=== PATIENT | male | born 1965 | race Caucasian/White ===

== ENCOUNTER 2024-03-24 00:32 | Inpatient (IN) | payer OTHER, SELFPAY ==
[2024-03-23] VITALS (9 sets, daily range): BP systolic 67–102; BP diastolic 43–59; BMI 32.8
[2024-03-23] MEDS: NSS 1000 IV (22:10)
--- NOTE | 2024-03-23 22:33 | ED.GENMED ---
History of Present Illness
<Fei Thomas MD, Resident - Last Filed: 03/23/24 23:57>
General
Chief Complaint: Dizziness
Time Seen by Provider: 03/23/24 22:00
History of Present Illness
History of Present Illness:
58-year-old male with history of hypertension, hyperlipidemia, type 2 diabetes, CHF, presents to the ED with dizziness. The dizziness began at 7:30 PM when he was sitting and having dinner and worsened with standing compared to when he is sitting
down. He also reports feeling tired and experiencing flickering lights making it difficult to open his eyes. Additionally the patient has neck pain and intermittent left ear clogging with fluid sensation in his ear. He has been having mild
headaches on and off, with the pain rated at 5 out of 10. He denies any chest pain, shortness of breath, palpitations, weakness, room spinning.
Past History
<Fei Thomas MD, Resident - Last Filed: 03/23/24 23:57>
Past History
ED Past Medical History: HTN, Hypercholesterolemia, NIDDM and DC
Social History
Tobacco: Non-smoker
Alcohol: None
Drug: None
Personal: Partner
Living: with family
Review of Systems
<Fei Thomas MD, Resident - Last Filed: 03/23/24 23:57>
Review of Systems
Neurological: Reports dizzy
Phy Exam
<Fei Thomas MD, Resident - Last Filed: 03/23/24 23:57>
General Physical Exam
General Presentation: well appearing and other
ENT Exam
ENT Exam: EOMI and TM's normal
Eye Exam
Eye Exam: PERRL
Cardiovascular Exam
Cardiovascular Exam: regular rate/rhythm and no murmur
Pulmonary Exam
Pulmonary Exam: lungs clear
Gastrointestinal Exam
Gastrointestinal Exam: non tender, soft and non distended
Neurological Exam
Neurological Exam: alert and oriented x3
Musculoskeletal Exam
Musculoskeletal Exam: full ROM
Psychiatric Exam
Psychiatric Exam: normal mood/affect
Course
<Fei Thomas MD, Resident - Last Filed: 03/23/24 23:57>
Orders/Labs/Results
Orders:
Orders
03/23/24 22:01
EKG [Electrocardiogram (*1)] Urgent
Reason for Study: Fatigue / Weakness
EKG- Treatment ONCE
03/23/24 22:25
Electrocardiogram (*1) Stat
Reason for Study: Other
Other Reason for Exam: chest pain
Cardiac Monitoring- Treatment ONCE
EKG- Treatment ONCE
03/23/24 22:26
0.9% Sodium Chloride 1000 ml [Nss] 1,000 ml IV BOLUS
03/23/24 22:51
Complete Blood Count/With Diff Urgent
Comprehensive Metabolic Panel Urgent
Creatine Phosphokinase Urgent
Comment: ADD ON
Magnesium Urgent
TSH Urgent
Troponin I Urgent
03/23/24 23:34
CT Abd/pel Without Iv Or Oral Urgent
Comment:
Reason For Exam: arf
Magnesium Sulfate 2 Gram/50 ml [Magnesium Sulfate] 2 gram in 50 ml IV NOW
03/23/24 23:40
Urinalysis Reflex To Culture Urgent
03/23/24 23:42
Add On- LAB Urgent
Tests Added?: cpk, uds
03/23/24 23:44
Urine - Eosinophils [Body Fluid for Eosinophils] Routine
Fluid Source: Urine
03/23/24 23:55
B-Hydroxybutyrate Urgent
Abnormal Lab Results
03/23/24
22:51
RBC 4.39 L 10^6/uL
(4.70-6.10)
Hgb 12.9 L g/dL
(13.0-18.0)
Hct 36.4 L %
(39.0-52.0)
Plt Count 109 L 10^3/uL
(130-400)
MPV 10.8 H fL
(7.4-10.4)
Chloride 109 H mmol/L
(98-107)
Carbon Dioxide 17 L mmol/L
(22-30)
BUN 46 H mg/dl
(9-20)
Creatinine 3.3 H mg/dL
(0.7-1.3)
Glucose 127 H mg/dl
(70-99)
Magnesium 1.5 L mg/dl
(1.6-2.3)
Total Bilirubin 1.7 H mg/dl
(0.2-1.3)
03/23/24 22:51
03/23/24 22:51
Vital Signs
Initial and Last Documented VS:
Initial Vital Signs
Temp Pulse Resp BP Pulse Ox
97.4 F 97 18 67/45 98
03/23/24 21:52 03/23/24 21:52 03/23/24 21:52 03/23/24 21:52 03/23/24 21:52
Last Documented Vital Signs
Temp Pulse Resp BP Pulse Ox
97.4 F 73 13 102/59 96
03/23/24 21:52 03/23/24 23:19 03/23/24 23:19 03/23/24 23:19 03/23/24 23:19
Emilt;Gonzalez Hilton, DO - Last Filed: 03/23/24 23:37>
Orders/Labs/Results
Orders:
Orders
03/23/24 22:01
EKG [Electrocardiogram (*1)] Urgent
Reason for Study: Fatigue / Weakness
EKG- Treatment ONCE
03/23/24 22:25
Electrocardiogram (*1) Stat
Reason for Study: Other
Other Reason for Exam: chest pain
Cardiac Monitoring- Treatment ONCE
EKG- Treatment ONCE
03/23/24 22:26
0.9% Sodium Chloride 1000 ml [Nss] 1,000 ml IV BOLUS
03/23/24 22:51
Complete Blood Count/With Diff Urgent
Comprehensive Metabolic Panel Urgent
Creatine Phosphokinase Urgent
Comment: ADD ON
Magnesium Urgent
TSH Urgent
Troponin I Urgent
03/23/24 23:34
CT Abd/pel Without Iv Or Oral Urgent
Comment:
Reason For Exam: arf
Magnesium Sulfate 2 Gram/50 ml [Magnesium Sulfate] 2 gram in 50 ml IV NOW
03/23/24 23:40
Urinalysis Reflex To Culture Urgent
03/23/24 23:42
Add On- LAB Urgent
Tests Added?: cpk, uds
03/23/24 23:44
Urine - Eosinophils [Body Fluid for Eosinophils] Routine
Fluid Source: Urine
03/23/24 23:55
B-Hydroxybutyrate Urgent
Abnormal Lab Results
03/23/24
22:51
RBC 4.39 L 10^6/uL
(4.70-6.10)
Hgb 12.9 L g/dL
(13.0-18.0)
Hct 36.4 L %
(39.0-52.0)
Plt Count 109 L 10^3/uL
(130-400)
MPV 10.8 H fL
(7.4-10.4)
Chloride 109 H mmol/L
(98-107)
Carbon Dioxide 17 L mmol/L
(22-30)
BUN 46 H mg/dl
(9-20)
Creatinine 3.3 H mg/dL
(0.7-1.3)
Glucose 127 H mg/dl
(70-99)
Magnesium 1.5 L mg/dl
(1.6-2.3)
Total Bilirubin 1.7 H mg/dl
(0.2-1.3)
03/23/24 22:51
03/23/24 22:51
Vital Signs
Initial and Last Documented VS:
Initial Vital Signs
Temp Pulse Resp BP Pulse Ox
97.4 F 97 18 67/45 98
03/23/24 21:52 03/23/24 21:52 03/23/24 21:52 03/23/24 21:52 03/23/24 21:52
Last Documented Vital Signs
Temp Pulse Resp BP Pulse Ox
97.4 F 73 13 102/59 96
03/23/24 21:52 03/23/24 23:19 03/23/24 23:19 03/23/24 23:19 03/23/24 23:19
<Gonzalez Hilton DO - Last Filed: 03/23/24 23:37>
*Cellular Biologist Interpretation
Rate: normal
Interpretation: normal
Rhythm: sinus
*Critical Care Note
Total Time (30-74mins, 75-104mins- exclusive of procedures): 30
Data Reviewed
Source: patient and significant other
<Fei Thomas MD, Resident - Last Filed: 03/23/24 23:57>
Update Note
Update Note:
58-year-old male presents with dizziness. Laboratory evaluation CBC CMP, troponin I. EKG shows normal sinus rhythm.
Differential diagnosis -#1 CVA, #2 DC #3 PE #4 aortic dissection with rupture less likely. no chest pain #5 orthostasis hypertension
-Patient's pulse ox is normal which rules out PE, denies CP.
-Checking troponin to r/o DC.
-Neurological examination was normal, motor strength 5/5 with normal sensation.
Laboratory evaluation reveals acute kidney injury of uncertain etiology. Troponin levels are within normal limits. A CT scan of the abdomen and pelvis is planned to rule out bowel obstruction. The patient is currently on 20 mg of lisinopril.
Questionable if this acute episode of dizziness could be an adverse effect of the medication. BP improved with fluids from 67/45 to 102/59 and he states of feeling better after fluids. Plan is to admit the patient for acute kidney injury.
ED Attending Note
<Fei Thomas MD, Resident - Last Filed: 03/23/24 23:57>
-
Portions of this chart may have been created with voice recognition software.� Occasional wrong word or��sound alike� substitutions may have occurred due to the inherent limitations of voice recognition software.
<Gonzalez Hilton DO - Last Filed: 03/23/24 23:37>
ED Attending Note
Patient seen and examined by attending physician: Yes
I performed a history and physical exam of patient and discussed management with resident, I reviewed resident's note and agree with documented findings and plan of care.: Yes
ED Attending Note:
Seen with resident examined independently 58-year-old male CAD, nondrinker non-smoker, hypertension, presents with dizziness low blood pressure neck pain no chest pain no shortness of breath no fever chills abdominal pain fairly acute onset only
complaining of some pain around C7-T1 no trauma states he is feeling better after some fluids
Physical exam he has normal mental status blood pressure now in the 90s after fluid bolus, EKG noted looks like an old inferior pattern, labs are cooking diagnosis not clear at this time will follow closely
11:30 PM labs noted no old in our system will replete replete magnesium, check CT scan to rule out obstruction will require admission
Discharge Plan
Departure
Patient Disposition: Admit
Date of Disposition: 03/23/24
Time of Disposition: 23:50
Presentation/result/management discussed w/ accepting MD/DO: Hospitalist
Patient with high blood pressure during this ER visit?: No
Discharge Problem:
Acute kidney injury
Referrals:
Ruppersberger,German, DO [Family Provider] -
Interventions
Interventions:
*General Assessment Last Done: 03/23/24 22:05
ED- Fall Risk Assessment Last Done: 03/23/24 22:05
*ED COVID-19 Vaccine History Last Done: 03/23/24 22:05
ED- Neurological Assessment Last Done: 03/23/24 22:05
ED- Cardiac Assessment Last Done: 03/23/24 22:05
Discharge Date and Time
Print Language: BENGALI
[2024-03-23 23:12] LABS: % Basophils 0.6 % (0-2); % Immature Granulocytes 0.4 % (0-0.5); % Lymphocytes 35.1 % (20.5-51.1); % Monocytes 6.8 % (1.7-9.3); % Neutrophils 56.1 % (42.2-75.2); Absolute Basophils 0.1 10^3/uL (0-0.2); Absolute Eosinophils 0.1 10^3/uL (0-0.7); Absolute Lymphocytes 2.8 10^3/uL (1.2-3.4); Absolute Monocytes 0.5 10^3/uL (0.1-0.6); Absolute Neutrophils 4.5 10^3/uL (1.4-6.5); Hematocrit 36.4 % (39.0-52.0); Hemoglobin 12.9 g/dL (13.0-18.0); Mean Corp Hgb Conc. 35.4 g/dL (33.0-37.0); Mean Corpuscular Hgb 29.4 pg (27.0-31.0); Mean Corpuscular Volume 82.9 fL (80.0-94.0); Nucleated Red Blood Cells % 0 % (-); Red Blood Cell Count 4.39 10^6/uL (4.70-6.10); Red Cell Dist. Width 13.2 % (11.5-14.5)
[2024-03-23 23:13] LABS: Mean Platelet Volume 10.8 fL (7.4-10.4); Platelet Count 109 10^3/uL (130-400)
[2024-03-23 23:31] LABS: Troponin I < 0.012 ng/ml
[2024-03-23 23:32] LABS: ALT (SGPT) 30 U/L (0-50); AST (SGOT) 34 U/L (17-59); Albumin 4.7 g/dl (3.5-5.0); Alkaline Phosphatase 78 U/L (38-126); Blood Urea Nitrogen 46 mg/dl (9-20); Calcium 9.6 mg/dl (8.4-10.2); Carbon Dioxide 17 mmol/L (22-30); Chloride 109 mmol/L (98-107); Estimated Creatinine Clearance 31 ml/min; Glucose 127 mg/dl (70-99); Magnesium 1.5 mg/dl (1.6-2.3); Potassium 4.7 mmol/L (3.5-5.1); Sodium 141 mmol/L (135-145); Total Bilirubin 1.7 mg/dl (0.2-1.3); Total Protein 7.5 g/dl (6.3-8.2); eGFR 20.56
--- NOTE | 2024-03-23 23:43 | HPS.HSE ---
Family Physician
-
Family Physician:
Chief Complaint
-
Diarrhea, dizziness, hypotension
History of Present Illness
58-year-old male complaining of dizziness starting at 7:30 PM while he was having dinner. He reports symptoms are worse with standing compared to sitting down. He reports intermittent left ear pain with fluid sensation mild headaches on and off
and neck pain. His states that his blood pressure at home was 60 over 30s when he was dizzy. He reports he has been having watery brown diarrhea 4 times a day for the past 3 days. He denies any blood or mucus no recent travel no antibiotics
no sick contacts no raw foods or abdominal pain. He denies fever, chills, chest pain, palpitations, room spinning, shortness of breath, cough, abdominal pain, nausea, vomiting, diarrhea. He has has medical history of hypertension, hyperlipidemia,
DM 2/diabetic neuropathy, CAD/[place] times 10/2007 former smoker 15 years 1/2 to 1 pack a day quit 2007.
Medical History
Past Medical History
Past Medical History: Reports Other
Additional Past Medical History:
hypertension
hyperlipidemia
DM 2/diabetic neuropathy
CAD/[place] times 10/2007
former smoker 15 years 1/2 to 1 pack a day quit 2007.
Past Surgical History: Reports Other
Additional Past Surgical History:
Left knee meniscus repair 2018, left knee cortisone injections
Social History
Tobacco: Former Smoker (15-year 1/2 pack to 1 pack/day quit 2007)
Alcohol: None
Drug: None
Personal:
Living: With Family ()
Employment: Employed
Family History
Family History: Other (Father pancreatic cancer age 39, mother living history hypothyroidism, 2 sisters 1 brother healthy)
Allergies / Home Medications
Allergies reflects when Allergies were last updated in [facility].
Home Medications with original date entered in [facility]
Allergy/Medication List:
Allergies
Allergy/AdvReac Type Severity Reaction Status Date / Time
No Known Allergies Allergy Unverified 03/23/24 21:52
Home Medications
Crestor 5 mg PO 03/24/24
Jardiance 10 mg PO DAILY 03/24/24
Norvasc 5 mg PO DAILY 03/24/24
alpha lipoic acid 600 mg PO BID 03/24/24
gabapentin 300 mg PO BID 03/24/24
lisinopril 20 mg tablet 20 mg PO DAILY 03/24/24
metformin 1,000 mg PO BID 03/24/24
Review of Systems
-
History Source: Patient and Family ()
A 12 point ROS was completed and negative except as noted: Yes
Constitutional: Reports Fatigue; Denies Fever, Night Sweats or Chills
EENT: Reports Other (Intermittent left ear pain); Denies Sore Throat or Runny Nose
Respiratory: Denies Cough or Trouble Breathing
Cardiac: Denies Chest Pain, Diaphoresis, Palpitations or Syncope
Abdomen/GI: Reports Diarrhea (Watery brown); Denies Abdominal Pain, Nausea, Vomiting, Constipated, Bloody Stools or Black Stools
: Denies Dysuria, Frequency, Flank Pain, Incontinence, Difficulty Voiding, Urgency or Dark Urine
Musculoskeletal: Denies Joint Pain or Edema
Skin: Denies Itching or Rash
Neurological: Reports Dizzy and Headache; Denies Weakness or Numbness
Endocrine: Reports No Symptoms
Hematologic/Lymphatic: Reports No Symptoms
Psych: Reports Calm
Physical Exam
Vital Signs
Vital Signs
Temp Pulse Resp BP Pulse Ox
97.4 F 73 13 102/59 96
03/23/24 21:52 03/23/24 23:19 03/23/24 23:19 03/23/24 23:19 03/23/24 23:19
Physical Exam
General: Comfortable and Conversant; No Pain, Fever or Chills
HEENT: NormoCephalic, Anicteric, PERRLA, [place] Conjunctivae, No Ptosis, Neck Nontender and Other (Left TM intact no effusion); No Pharyngeal Erythema
Respiratory: Clear; No Wheezes, Rales or Rhonchi
Cardiac: S1/S2 and Regular Rhythm; No Murmur, Rub, Gallop or Peripheral Edema
Breast: Deferred by me
GI: Soft, Non Tender, Non Distended, Normal Bowel Sounds and No Hepatosplenomegaly
Rectal: Deferred by Provider
Genito-urinary: Deferred by me
Musculoskeletal: No Clubbing, No Cyanosis and No Edema
Skin: Warm and Dry; No Rash or Jaundice
Neuro: AO x 3, No Motor Deficits, Nonfocal/grossly intact, Cranial Nerves Intact and No Sensory Deficits; No Slurred Speech, Facial Droop or Tremors
Psych: Calm
Laboratory Results
-
03/23/24 22:51
03/23/24 22:51
Laboratory Results
Total Bilirubin 1.7 mg/dl (0.2-1.3) H 03/23/24 22:51
AST 34 U/L (17-59) 03/23/24 22:51
ALT 30 U/L (0-50) 03/23/24 22:51
Alkaline Phosphatase 78 U/L (38-126) 03/23/24 22:51
Troponin I < 0.012 ng/ml 03/23/24 22:51
Impression/Plan
-
Impression/plan:
Admit to telemetry
#Acute diarrhea likely viral
No fever no chills no antibiotics no recent travel no sick contacts
Watery brown 4 times a day times past 3 days
Check C. difficile, stool WBC, stool culture, norovirus
#Acute hypotension secondary to volume depletion/CHIOMA/diarrhea
67/45> 102/59 status post 1 L NSS
IV NSS 100 cc/h
I/O, daily weights
-Hold lisinopril, Norvasc 5 mg daily
#CHIOMA likely secondary to diarrheal losses
Creat 3.3/bun 46
-Check Cpk, urine eosinophil
-CT abdomen pelvis noncontrast
-Hold lisinopril 20 mg daily, metformin 1000 mg twice daily, Jardiance 10 mg
-Consult nephrology
-IV NSS 100 cc an hour is status post 1 L NSS
#Thrombocytopenia unclear
PLT 109
Follow CBC
#Hypomagnesemia
Mag 1.5 will give mag rider 2 g
-Repeat mag in a.m.
EKG NSR 90 bpm, QTc 451 MS T wave inversions inferior leads
#Chronic left knee pain status post cortisone injection several days ago
#History of left meniscus repair 2017
#CAD/[place] times 10/2007
-Patient reports had cardiac cath was unable to have any stenting completed at [facility]
-Does not follow with cardiology
#DM2 with diabetic neuropathy
-Continue gabapentin 300 mg twice daily will decrease to 300 mg daily
-Hold OTC alpha lipoic acid
#HLD
Crestor 5 mg in a.m.
#Former smoker
15-year 1/2 pack to 1 pack/day quit 2007
#Obesity due to excess calorie consumption�BMI 32.8 kg
Affects all aspects of care
Weight loss recommended
DVT prophylaxis
SCDs
full code
[2024-03-23 23:57] LABS: Creatine Phosphokinase 210 U/L (55-170)
[2024-03-23] MEDS: MAGNESIUM SULFATE 50 IV (23:58)
[2024-03-24] VITALS (15 sets, daily range): BP systolic 93–150; BP diastolic 52–82; PULSE 74–86; O2SAT 97; BMI 32.8
[2024-03-24 00:02] LABS: TSH 2.05 uIU/ml (0.47-4.68)
--- NOTE | 2024-03-24 00:09 | W.PN.UPDATE ---
Update Note
Progress Note Update
This note serves as an addendum to the H&P by inspectors and regulatory officers ARIANE Kimberly CASTAÑEDA
HPI
58M HX HTN, T2DM, CHF, HLD , no prior visist to DH seen at ER for evaluation of low BP and dizziness.
Acute dizzy spells
- onset around 730pm
- more like lightheadedness with upright posture and walking
- BP at home 60/30 per spouse
- associated with flashing lights when opening eyes
- associated neck pain and intermittent left ear clogging that feels like there is water in his ear.
- mild headaches on and off, with the pain rated at 5 out of 10.
- acute watery brown non bloody diarrhea without abdominal pain for last 4- 5days
- No recent ABx
- No recent travailing
- denied HX sick contact
ROS:
Denies chest pain, shortness of breath, palpitations, weakness
At ER:
Noted hypotension
Significant labs include Cr 3.3, CO2 17, Mg 1.5 and Platelet 109
PHX:
see above
Reviewed VS: Afebrile BP 92/50 - 102/60 HR73 RR13 POx 96
PE
Gen: Not toxic looking , Obese BMI 32
HEENT: anicteric , moist OM, no tonsillitis
Neck: supple
Lungs: CTA
Cor: RRR S1 S2 no murmur
Abdomen: soft , obese protuberant abdomen, NT, Ng, NRT
FORK ASSEMBLER: AAO3, NFND
MS: no edema
Psych: appropriate
Data: No prior Jude in [facility]
Hgb 12.9
Plt 109
Na 141
Cl 109
CO2 17
BUN 46
Cr 3.3
e GFR 20
BG 127
AGMA 15
Mg 1.5
TB 1.7
Nl ALT and AST
NEG TPNI
Pending B Hydroxybutyrate
Pending CPK
Pending Ur eosinophiles
Pending TSH
Pending UA
Pending Covid
Pending CT AP wo contrast ( IV and PO )
No prior DH and and hospitalist admission:
ASSESSMENT & PLAN
Pending Rx reconciliation
Renal insufficiency - suspect CHIOMA , any element of CKD
Associated AG metabolic acidosis(15)
DDX: acute diarrhea , r/o ketoacidosis such as diabetic ketoacidosis, euglycemia ketoacidosis ??
Hypovolemia
Current Cr Cl 31
- Pending Rx reconciliation and check Dapagliflozin as OP Meds - if it is will hold
- Pending B Hydroxybutyrate
- Pending CPK
- Pending Ur eosinophiles
- Pending UDS
- Pending CT AP wo contrast ( IV and PO )
- IVF NS and trend Cr and AGMA
- Held Lisinopril and Norvasc
- De escalade Gabapentin according to Cr Cl
- Renal consult
Acute watery non bloody diarrhea for last 3 days
Suspect acute enteritis vs colitis Diff etiology: Vitral
- IV NS
- Stool WCC, Cx and C Diff
- check Noro virus
T2DM
Diabetic neuropathy on Gabapenttin 300 mg BID
- add ISS low
- held Metformin
Hypotensive due to volume contraction from acute diarrhea
Essential HTN
- Held Lisinopril and Norvasc
Mild Thrombocytopenia - unclear etiology
- Trend Platelet
HLD
DVT Px: SCD
Code: Full code
IP TLM
[2024-03-24] MEDS: NSS 1000 IV ×4 (00:15→21:34)
[2024-03-24 04:26] LABS: COVID-19 Antigen Negative (Negative)
[2024-03-24 07:59] LABS: % Basophils 0.4 % (0-2); % Eosinophils 1.1 % (0-6); % Immature Granulocytes 0.2 % (0-0.5); % Lymphocytes 46.6 % (20.5-51.1); % Monocytes 7.6 % (1.7-9.3); % Neutrophils 44.1 % (42.2-75.2); Absolute Eosinophils 0.1 10^3/uL (0-0.7); Absolute Lymphocytes 2.1 10^3/uL (1.2-3.4); Absolute Monocytes 0.3 10^3/uL (0.1-0.6); Hematocrit 33.3 % (39.0-52.0); Hemoglobin 11.5 g/dL (13.0-18.0); Mean Corp Hgb Conc. 34.5 g/dL (33.0-37.0); Mean Corpuscular Volume 84.1 fL (80.0-94.0); Nucleated Red Blood Cells % 0 % (-); Red Blood Cell Count 3.96 10^6/uL (4.70-6.10); Red Cell Dist. Width 13.2 % (11.5-14.5); White Blood Cell Count 4.5 10^3/uL (4.8-10.8)
[2024-03-24] MEDS: NEURONTIN 300 MG PO (08:00)
[2024-03-24 08:05] LABS: Glucose - Point of Care 89 mg/dl (70-99)
[2024-03-24 08:13] LABS: ALT (SGPT) 29 U/L (0-50); AST (SGOT) 31 U/L (17-59); Albumin 3.9 g/dl (3.5-5.0); Alkaline Phosphatase 83 U/L (38-126); Blood Urea Nitrogen 39 mg/dl (9-20); Calcium 8.7 mg/dl (8.4-10.2); Carbon Dioxide 17 mmol/L (22-30); Chloride 111 mmol/L (98-107); Estimated Creatinine Clearance 61 ml/min; Glucose 82 mg/dl (70-99); HDL Cholesterol 16 mg/dl; LDL Cholesterol, Calculated 20 mg/dl; Magnesium 1.8 mg/dl (1.6-2.3); Potassium 4.4 mmol/L (3.5-5.1); Sodium 139 mmol/L (135-145); Total Bilirubin 1.6 mg/dl (0.2-1.3); Total Cholesterol 72 mg/dl (50-199); Total Protein 6.5 g/dl (6.3-8.2); Triglyceride 180 mg/dl (10-149); Very Low Density Lipoprotein 36 mg/dl (0-30); eGFR 45.58
[2024-03-24 09:16] LABS: Mean Platelet Volume 11.4 fL (7.4-10.4); Platelet Count 72 10^3/uL (130-400)
[2024-03-24 09:37] LABS: Urine Albumin Trace (Neg - Trace); Urine Bilirubin Negative (Negative); Urine Character Clear (Clear); Urine Color Yellow; Urine Glucose 3+ (Negative); Urine Ketone Trace (Negative); Urine Leukocyte Negative (Negative); Urine Nitrite Negative (Negative); Urine Occult Blood Negative (Negative); Urine Urobilinogen Negative (Neg - 1+)
[2024-03-24 10:53] LABS: Glycohemoglobin (HgbA1c) 5.3 % (4.0-5.6)
[2024-03-24 11:18] LABS: Glucose - Point of Care 110 mg/dl (70-99)
--- NOTE | 2024-03-24 12:02 | W.PN.HOSP.TC ---
Today's Communication/Plan
-
Monitor vital signs and see plan
Continue to follow stool studies
Continue with fluids
Trial of regular diet
Monitor renal function
Assessment / Plan
Assessment / Plan
General: Comfortable and Conversant
HEENT: NormoCephalic, Anicteric, PERRLA, [place] Conjunctivae
Respiratory: Clear; No Wheezes, Rales or Rhonchi
Cardiac: S1/S2 and Regular Rhythm; No Murmur
Breast: Deferred by me
GI: Soft, Non Tender, Non Distended, Normal Bowel Sounds
Musculoskeletal: No Edema
Neuro: AO x 3, No Motor Deficits, Nonfocal/grossly intact
Psych: Calm
Renal insufficiency - suspect CHIOMA , unsure if has any CKD
Associated AG metabolic acidosis
monitor Creatinine
Hypovolemia
- Pending Ur eosinophiles
- Pending UDS
CT abdomen/pelvis with colonic diverticulosis, mild hepatosplenomegaly. No acute abnormality
- IVF NS and trend Cr and AGMA
- Held Lisinopril and Norvasc
- De escalade Gabapentin according to Cr Cl
Hold off on renal evaluation, if creatinine does not improve then will get nephrology to evaluate
Acute watery non bloody diarrhea for last 3 days
- IV NS
- Stool WCC, Cx
cdiff neg
T2DM
Diabetic neuropathy on Gabapentin 300 mg BID
- add ISS low
- held Metformin
Hypotensive due to volume contraction from acute diarrhea
Essential HTN
- Held Lisinopril and Norvasc
Chronic left knee pain status post cortisone injection several days ago
#History of left meniscus repair 2017
#CAD/[place] times 10/2007
-Patient reports had cardiac cath was unable to have any stenting completed at [facility]
-Does not follow with cardiology
Mild Thrombocytopenia - unclear etiology
- Trend Platelet
HLD
DVT Px: SCD
Code: Full code
Anticipated Discharge: 24 - 48 hours
Subjective/Interval History
-
Date of Service: March 24, 2024
denies pain
Objective Data
-
Labs:
Laboratory Results
03/24/24
06:34
WBC 4.5 L
Hgb 11.5 L
Hct 33.3 L
Plt Count 72 L D
Sodium 139
Potassium 4.4
Chloride 111 H
Carbon Dioxide 17 L
BUN 39 H
Creatinine 1.7 H
Glucose 82
Calcium 8.7
Total Bilirubin 1.6 H
AST 31
ALT 29
Alkaline Phosphatase 83
Vital Signs:
Vital Signs
Temp Pulse Resp BP Pulse Ox
97.5 F 66 16 112/64 96
03/24/24 07:00 03/24/24 07:00 03/24/24 07:00 03/24/24 07:00 03/24/24 07:00
I&O
03/23/24 03/24/24 03/25/24
06:59 06:59 06:59
Intake Total 400 / 400
Balance 400 / 400
[2024-03-24 12:57] LABS: Amphetamines Negative (Negative); Barbiturates Negative (Negative); Benzodiazepines Negative (Negative); Buprenorphine Negative (Negative); Cocaine Negative (Negative); Marijuana Negative (Negative); Methadone Negative (Negative); Methamphetamines Negative (Negative); Opiates Negative (Negative); Phencyclidine Negative (Negative); Tricyclic Antidepressants Negative (Negative)
[2024-03-24 13:48] LABS: Body Fluid for Eosinophils No Eosinophils seen
--- NOTE | 2024-03-24 15:25 | CM ---
Met with pt and SO at bedside
Pt lives alone in a 2 story home, currently going through divorce - plans to go to SO's home at d/c
Independent, driving
DME - cane
SNF/HH - denies hx
Has ride at d/c
PCP -Dr Purcell
Pharm - [facility]
CM will follow for d/c needs
Plan - anticipate home no needs
[2024-03-24 16:59] LABS: Glucose - Point of Care 103 mg/dl (70-99)
[2024-03-24 21:43] LABS: Glucose - Point of Care 114 mg/dl (70-99)
[2024-03-25] MEDS: NSS 1000 IV (06:40)
[2024-03-25 07:00] VITALS: BP 148/73
[2024-03-25 07:28] LABS: % Basophils 0.5 % (0-2); % Eosinophils 1.5 % (0-6); % Immature Granulocytes 0.3 % (0-0.5); % Lymphocytes 39.5 % (20.5-51.1); % Monocytes 6.8 % (1.7-9.3); % Neutrophils 51.4 % (42.2-75.2); Absolute Eosinophils 0.1 10^3/uL (0-0.7); Absolute Lymphocytes 1.6 10^3/uL (1.2-3.4); Absolute Monocytes 0.3 10^3/uL (0.1-0.6); Hematocrit 33.6 % (39.0-52.0); Mean Corp Hgb Conc. 35.7 g/dL (33.0-37.0); Mean Corpuscular Hgb 30.4 pg (27.0-31.0); Mean Corpuscular Volume 85.1 fL (80.0-94.0); Mean Platelet Volume 11.1 fL (7.4-10.4); Nucleated Red Blood Cells % 0 % (-); Platelet Count 64 10^3/uL (130-400); Red Blood Cell Count 3.95 10^6/uL (4.70-6.10); Red Cell Dist. Width 12.9 % (11.5-14.5)
[2024-03-25 07:35] LABS: ALT (SGPT) 28 U/L (0-50); AST (SGOT) 30 U/L (17-59); Albumin 3.7 g/dl (3.5-5.0); Alkaline Phosphatase 71 U/L (38-126); Blood Urea Nitrogen 21 mg/dl (9-20); Calcium 8.8 mg/dl (8.4-10.2); Carbon Dioxide 21 mmol/L (22-30); Chloride 110 mmol/L (98-107); Estimated Creatinine Clearance 115 ml/min; Glucose 80 mg/dl (70-99); Potassium 4.8 mmol/L (3.5-5.1); Sodium 138 mmol/L (135-145); Total Bilirubin 1.3 mg/dl (0.2-1.3); Total Protein 6.4 g/dl (6.3-8.2); eGFR > 60.00
[2024-03-25 07:38] LABS: Glucose - Point of Care 94 mg/dl (70-99)
[2024-03-25] MEDS: NEURONTIN 300 MG PO (08:18)
[2024-03-25] MEDS: NORVASC 10 MG PO (10:24)
--- NOTE | 2024-03-25 10:51 | W.PN.HOSP.TC ---
Today's Communication/Plan
-
Monitor vital signs and see plan
Discharge today
DC metformin and Jardiance on discharge
Time of discharge 38 minutes
Assessment / Plan
Assessment / Plan
General: Comfortable and Conversant
HEENT: NormoCephalic, Anicteric, PERRLA, [place] Conjunctivae
Respiratory: Clear; No Wheezes, Rales or Rhonchi
Cardiac: S1/S2 and Regular Rhythm; No Murmur
Breast: Deferred by me
GI: Soft, Non Tender, Non Distended, Normal Bowel Sounds
Musculoskeletal: No Edema
Neuro: AO x 3, No Motor Deficits, Nonfocal/grossly intact
Psych: Calm
SKI likely 2/2 diarrhea,Diabetes meds
Associated AG metabolic acidosis
monitor Creatinine; reolved; Cr 0.9
Hypovolemia
- Ur eosinophiles neg
- UDS neg
CT abdomen/pelvis with colonic diverticulosis, mild hepatosplenomegaly. No acute abnormality
- IVF NS and trend Cr and AGMA
- Held Lisinopril and Norvasc; restart Norvasc. Instructed patient to restart lisinopril when blood pressure persistently elevated at home
Resume home gabapentin dose on discharge
Hold off on renal evaluation, if creatinine does not improve then will get nephrology to evaluate
Acute watery non bloody diarrhea for last 3 days
resolved
Stool WBC negative, norovirus nge
cdiff neg
T2DM
A1c 5.3, discussed with patient and his significant other that he can stop metformin and Jardiance on discharge and follow-up with primary care provider
Diabetic neuropathy on Gabapentin 300 mg BID
- add ISS low
- held Metformin
Hypotensive due to volume contraction from acute diarrhea
Essential HTN
Chronic left knee pain status post cortisone injection several days ago
#History of left meniscus repair 2017
#CAD/[place] times 10/2007
-Patient reports had cardiac cath was unable to have any stenting completed at [facility]
-Does not follow with cardiology
Mild Thrombocytopenia - unclear etiology
- Trend Platelet
HLD
DVT Px: SCD
Code: Full code
Anticipated Discharge: Today
Subjective/Interval History
-
Date of Service: March 25, 2024
denies pain
Objective Data
-
Labs:
Laboratory Results
03/25/24
05:54
WBC 4.0 L
Hgb 12.0 L
Hct 33.6 L
Plt Count 64 L
Sodium 138
Potassium 4.8
Chloride 110 H
Carbon Dioxide 21 L
BUN 21 H
Creatinine 0.9
Glucose 80
Calcium 8.8
Total Bilirubin 1.3
AST 30
ALT 28
Alkaline Phosphatase 71
Vital Signs:
Vital Signs
Temp Pulse Resp BP Pulse Ox
98.1 F 76 16 135/73 95
03/25/24 07:00 03/25/24 10:24 03/25/24 07:00 03/25/24 10:24 03/25/24 07:00
I&O
03/24/24 03/25/24 03/26/24
06:59 06:59 06:59
Intake Total 400 / 400 1680 / 1680 1680 / 1680
Balance 400 / 400 1680 / 1680 1680 / 1680
[2024-03-25 11:07] VITALS: BP 142/74
[2024-03-25 11:30] VITALS: BP 113/65; BP 124/71; BP 127/73; PULSE 76; PULSE 79; PULSE 88
--- NOTE | 2024-03-25 11:34 | CM ---
Case management following for d/c needs
Pt for d/c today
Has ride home
Plan - anticipate home no needs
[2024-03-25 12:03] LABS: Glucose - Point of Care 111 mg/dl (70-99)
--- NOTE | 2024-03-25 13:37 | W.DCSUMMARY ---
Discharge Summary
Discharge Data
Date of Admission: 03/24/24
Date of Discharge: 03/25/24
-
Pending Results: No
Hospital Course
58-year-old male with past medical history of CAD, NC, type 2 diabetes mellitus came to the hospital with acute kidney injury which was likely thought was secondary to ongoing diarrhea and use of diabetes medications. Patient did had metabolic
acidosis on admission which continue to improve. His creatinine was significantly elevated on admission which over time continue to improve after fluids. CT scan was done which did not show any acute abdominal abnormality. Initially patient was
hypotensive so his blood pressure medications were held. Once his blood pressure continued to rise then he was started back on Norvasc. His lisinopril was held on discharge and he was instructed to restart if his blood pressure is persistently
high at home. His diarrhea resolved on its own and was likely thought was secondary to viral. Stool studies were negative for norovirus, C. difficile. His A1c also came out to be 5.3 so he was instructed to stop his metformin and Jardiance and
follow-up with primary care provider outpatient. Once his symptoms continue to improve and his creatinine normalized, he was then discharged home with instructions to follow-up with all his physicians outpatient.
Discharge Plan
-
Patient Disposition: Home (Routine Discharge)
Discharge Diagnosis/Procedures: Acute kidney injury
Metabolic acidosis
Acute diarrhea
Dehydration
Thrombocytopenia
Diet: As tolerated
Activity: As tolerated
Driving Restrictions: As prior to admission
Bathing Restrictions: None
Blood Work: CBC and BMP next week with primary care provider
Referrals:
German Slaughter, [Family Provider] - in less than 1 week
Prescriptions:
Continued
Norvasc
10 mg PO DAILY
alpha lipoic acid
600 mg PO BID
gabapentin
300 mg PO BID
rosuvastatin 20 mg Tablet
20 mg PO DAILY
Held
lisinopril 20 mg Tablet
20 mg PO DAILY
Hold Instructions: Restart when blood pressure is greater than 140/90
Discontinued
Jardiance
25 mg PO DAILY
Patient Comments:
started in january
metformin
1,000 mg PO BID
Discharge Orders:
Discharge Patient (As Directed); Ordered 03/25/24
Ordered By: Sonny Goldberg
Discharge Date and Time
Print Language: ERITREAN
[2024-03-25 15:00] VITALS: BP 159/92
[2024-03-26 19:00] LABS: Hepatitis C Antibody Negative (Negative)
== END 2024-03-25 17:50 | disposition home or self-care (01) | DRG 683 ==
LOC: 3 WEST ACU 00:32
PROVIDERS: Clinical Nurse Specialist Family Health; ADMITTING PHYSICIAN Internal Medicine; ATTENDING PHYSICIAN Internal Medicine; EMERGENCY PHYSICIAN Emergency Medicine; FAMILY PHYSICIAN Family Medicine
DX: N17.9 Acute kidney failure, unspecified (principal); E87.20 Acidosis, unspecified; D69.6 Thrombocytopenia, unspecified; E11.40 Type 2 diabetes mellitus with diabetic neuropathy, unspecified; I95.9 Hypotension, unspecified; A08.4 Viral intestinal infection, unspecified; E86.0 Dehydration; E83.42 Hypomagnesemia; M25.562 Pain in left knee; I25.10 Atherosclerotic heart disease of native coronary artery without angina pectoris; I25.2 Old myocardial infarction; E78.5 Hyperlipidemia, unspecified; Z79.84 Long term (current) use of oral hypoglycemic drugs; Z79.899 Other long term (current) drug therapy; Z87.891 Personal history of nicotine dependence
CPT/HCPCS: 74176; 80053; 80061; 80306; 81003; 81099; 82010; 82550; 82962; 83036; 83735; 84443; 84484; 85025; 86803; 87045; 87046; 87070; 87324; 87427; 87449; 87798; 87811; 89055; 93005; 96361; 96365; 96366; 97161; 97530; 99291